=== PATIENT | female | born 1990 ===

== ENCOUNTER 2021-08-11 17:00 | Inpatient (IN) | payer BC ==
[2021-08-11] MEDS ORDERED: Sodium Chloride 0.9% 10 ML Syringe FLUSH PRN (17:28)
[2021-08-11] MEDS ORDERED: Misoprostol 200 MCG Tab PO PRN (17:28)
[2021-08-11] MEDS ORDERED: Butorphanol 1 MG/ML SDV IVPUSH PRN (17:28)
[2021-08-11] MEDS ORDERED: Sodium Chloride 0.9% 10 ML SDV IV PRN (17:28)
[2021-08-11] MEDS ORDERED: Ondansetron 4 MG/2 ML SDV IVPUSH PRN (17:28)
[2021-08-11] MEDS ORDERED: Methylergonovine 0.2 MG/1 ML Amp IM PRN (17:28)
[2021-08-11] MEDS ORDERED: Tranexamic Acid 1,000 MG in Sodium Chloride 0.9% 100 ML IV PRN (17:28)
[2021-08-11] MEDS ORDERED: Sodium Chloride 0.9% 2.5 ML Syringe FLUSH PRN (17:28)
[2021-08-11] MEDS ORDERED: Lidocaine 1% 50 ML MDV INJECT PRN (17:28)
[2021-08-11] MEDS ORDERED: Carboprost Tromethamine 250 MCG/1 ML Amp IM PRN (17:28)
[2021-08-11] MEDS ORDERED: Nalbuphine 10 MG/1 ML Vial IVPUSH PRN (17:28)
[2021-08-11] MEDS ORDERED: Water For Irrigation,Sterile 1,000 ML Container IRR PRN (17:28)
[2021-08-11] MEDS ORDERED: Oxytocin/0.9 % Sodium Chloride 30 UNIT/500 ML BAG IV SCH ×2 (17:30)
[2021-08-11] MEDS ORDERED: Misoprostol 25 MCG (1/4 of 100 MCG) Tab VAG PRN (17:30)
[2021-08-11] MEDS ORDERED: Terbutaline 1 MG/ML SDV SUBCUT PRN (17:30)
[2021-08-11] MEDS: Lactated Ringers 1,000 ML IV SCH (18:50)
[2021-08-11 18:52] LABS: BLOOD UREA NITROGEN,BUN 8 mg/dL (7.0-18.0); CARBON DIOXIDE,CO2 20.8 mmol/L (21.0-32.0); CHLORIDE,CL 101 mmol/L (98-107); GLUCOSE RANDOM 73 mg/dL (74-106); SODIUM,NA 135 mmol/L (136-145)
[2021-08-11] MEDS ORDERED: Misoprostol 50 MCG (1/2 of 100 MCG) Tab VAG PRN (20:30)
[2021-08-11] MEDS: Misoprostol 25 MCG (1/4 of 100 MCG) Tab VAG PRN (20:56)
[2021-08-12] MEDS: Misoprostol 25 MCG (1/4 of 100 MCG) Tab VAG PRN ×3 (00:53→10:05)
[2021-08-12] MEDS: Lactated Ringers 1,000 ML IV SCH ×3 (12:57→16:18)
[2021-08-12] MEDS ORDERED: Ropivacaine HCl/PF 200 ML ONE (13:23)
[2021-08-12] MEDS ORDERED: EPINEPHrine 1 MG/1 ML Amp ONE (16:13)
[2021-08-12] MEDS ORDERED: Lidocaine 2% 5 ML SDV ONE (16:13)
[2021-08-12] MEDS ORDERED: Sodium Chloride 0.9% 10 ML SDV IV PRN (16:15)
[2021-08-12] MEDS ORDERED: Citric Acid/Sodium Citrate Solution 30 ML Cup PO ONE (16:15)
[2021-08-12] MEDS ORDERED: Oxytocin/0.9 % Sodium Chloride 30 UNIT/500 ML BAG IV SCH (16:15)
[2021-08-12] MEDS ORDERED: Sodium Chloride 0.9% 2.5 ML Syringe FLUSH PRN (16:15)
[2021-08-12] MEDS ORDERED: Lactated Ringers 1,000 ML IV SCH ×2 (16:15→17:15)
[2021-08-12] MEDS ORDERED: Sodium Chloride 0.9% 10 ML Syringe FLUSH PRN (16:15)
[2021-08-12] MEDS ORDERED: ceFAZolin 2 GM in Premix Bag 1 BAG IV ONE (16:15)
[2021-08-12] MEDS ORDERED: Bupivacaine 0.5% 10 ML SDV ONE (16:17)
[2021-08-12] MEDS ORDERED: fentaNYL 100 MCG/2 ML SDV ONE (16:20)
[2021-08-12] MEDS ORDERED: Ketorolac 30 MG/ML SDV ONE (16:20)
[2021-08-12] MEDS ORDERED: Ondansetron 4 MG/2 ML SDV ONE (16:20)
[2021-08-12] MEDS ORDERED: Oxytocin 10 Units/1 ML SDV ONE (16:20)
[2021-08-12] MEDS ORDERED: ceFAZolin 1 GM Vial ONE (17:06)
[2021-08-12] MEDS ORDERED: Morphine PF 10 MG/10 ML SDV ONE (17:06)
[2021-08-12] MEDS ORDERED: Oxytocin 10 Units/1 ML SDV IM PRN (17:15)
[2021-08-12] MEDS ORDERED: Misoprostol 200 MCG Tab RECTAL PRN (17:15)
[2021-08-12] MEDS ORDERED: diphenhydrAMINE 50 MG/ML SDV IVPUSH PRN (17:15)
[2021-08-12] MEDS ORDERED: Tranexamic Acid 1,000 MG in Sodium Chloride 0.9% 100 ML IV PRN (17:15)
[2021-08-12] MEDS ORDERED: Methylergonovine 0.2 MG/1 ML Amp IM PRN (17:15)
[2021-08-12] MEDS ORDERED: Lanolin 100% Cream 7 GM Tube TOP PRN (17:15)
[2021-08-12] MEDS ORDERED: Ondansetron 4 MG/2 ML SDV IVPUSH PRN (17:15)
[2021-08-12] MEDS ORDERED: Acetaminophen/oxyCODONE 325-5 MG Tab PO PRN (17:15)
[2021-08-12] MEDS ORDERED: Oxytocin/Lactated Ringers 30 UNIT/500 ML BAG IV SCH (17:15)
[2021-08-12] MEDS ORDERED: Bisacodyl 10 MG Supp RECTAL PRN (17:15)
--- NOTE | 2021-08-12 17:31 | PCM.OPNOTE ---
<Kathleen Serna - Last Filed: 08/12/21 17:25> - General Post-Op/Procedure Note Date of Surgery/Procedure: 08/12/21 Operative Procedure(s): Primary section Findings: Viable girl. Apgars 8 and 9. Weight 2980 grams. Pre Op Diagnosis: 31 year old at 37 weeks 3 days. Gestational diabetes. Maternal obesity. Non-reassuring heart tones Post-Op Diagnosis: Same Anesthesia Technique: Epidural Primary Surgeon: Stacey Mckay Machine Container Washer: Kathleen Serna Fluid Replacement, Intraop: 1,000 Output, Urine Amount: 575 EBL in mLs: 600 Complications: None known Condition: Good Free Text/Narrative:: Intake & Output 08/12/21 08/12/21 08/12/21 06:59 14:59 22:59 Intake Total 975 975 Balance 975 975 <Stacey Mckay - Last Filed: 08/13/21 08:18> - General Post-Op/Procedure Note Free Text/Narrative:: Intake & Output 08/12/21 08/13/21 08/13/21 22:59 06:59 14:59 Intake Total 1975 Output Total 2149 2049 Balance -175 -2049 Agree with above
[2021-08-12] MEDS: Docusate Sodium 100 MG Cap PO SCH (21:05)
--- NOTE | 2021-08-12 22:56 | OR ---
SURGEON: STACEY MCKAY MD DATE OF PROCEDURE: 08/12/2021 PROCEDURE: Primary lower transverse section. PREOPERATIVE DIAGNOSES: 1. Term intrauterine at 37 weeks and 3 days. 2. Gestational hypertension. 3. Non-reassuring heart tones. POSTOPERATIVE DIAGNOSES: 1. Term intrauterine at 37 weeks and 3 days. 2. Gestational hypertension. 3. Non-reassuring heart tones. PROCEDURE: Primary lower transverse section. PRIMARY SURGEON: Stacey Mckay MD GREEN BUILDING ENGINEER: CHIKIS [id number] ANESTHESIA: Epidural. COMPLICATIONS: None known. EBL: 600 mL. IV FLUIDS: 1000 mL of crystalloid. URINE OUTPUT: 535 mL of clear urine at the end of the procedure. INDICATION: The patient is a 31-year-old 1, para 0, at 37 weeks and 3 days, who was admitted to Labor and Delivery on the evening of 08/11/2021, for induction of labor due to gestational hypertension. She received 4 doses of vaginal Cytotec overnight with spontaneous rupture of membranes occurring in the morning of 08/12/2021. Shortly thereafter, she received an epidural for pain management. Following the epidural, there was a prolonged deceleration, which recovered with interventions of oxygen per face mask and IV fluids along with position changes. However, as labor progressed, tachysystole was noted along with recurrent late decelerations which did not resolve with interventions of oxygen, IV fluids and amnioinfusion. A decision was made to proceed with primary lower transverse section due to nonreassuring heart tones. FINDINGS: Normal-appearing female infant, cephalic presentation, clear amniotic fluid. score of 8 and 9. Weight 6 pounds 9 ounces. Uterus appears normal except for 3 approximately 1 cm subserosal fibroids located over the anterior wall of the uterus. Normal-appearing fallopian tubes and ovaries. DESCRIPTION OF PROCEDURE: The patient was taken to the operating room where epidural anesthesia was found to be adequate. At that time, heart tones were noted to be in the 80s persistently, so Betadine was used to splash the abdomen and the procedure was started urgently at that time. A skin incision was made with scalpel and carried to the underlying layer of fascia which was incised in the midline. Fascial incision was then extended laterally with Tavarez scissors bilaterally. The superior aspect of the fascial incision was then grasped with Eusebio clamps, elevated, and dissected off the rectus muscles with Mayoalice. In a likewise manner, the inferior aspect of the fascial incision was grasped with Eusebio's, elevated, and dissected off with Mayos. The peritoneum was then entered digitally and extended with good visualization of the bladder. The Kehinde O- ring was then inserted to the abdomen to assist with retraction. The uterine incision was then created in a transverse fashion in the lower uterine segment with scalpel and extended digitally. Clear fluid noted. Infant's head delivered atraumatically. Nose and mouth suctioned with a bulb. Cord clamped and cut, handed off to waiting nursing staff. The placenta was then expressed after obtaining arterial, venous, and cord blood gases. The uterus was then exteriorized and the abdomen cleared of all clots and debris. The uterine incision was then repaired in a running locked fashion with 0 Monocryl. A second suture of the same was then used to imbricate the incision. Excellent hemostasis was noted. The uterus was then returned to the abdomen. Gutters cleared of all clots and debris. The Kehinde O-ring was then removed. The peritoneum was then closed in a running fashion with 0 Vicryl. The inferior rectus muscles were reapproximated with a [id number] suture with 0 Vicryl. The fascia was then closed with 0 Vicryl in a running fashion. The incision was irrigated. Hemostasis assured. Subcutaneous tissue was closed with 2-0 plain gut and skin was closed with 3-0 Vicryl on a Kenneth needle along with Steri- Strips and abdominal bandage. Sponge, lap, needle count were correct x2. Prophylactic antibiotics were given prior to the procedure. The patient tolerated the procedure well and was taken to room for recovery in stable condition. MANFRED / JAX /[id number] CALLI
[2021-08-12] MEDS: Ketorolac 30 MG/ML SDV IVPUSH SCH ×2 (23:15→23:20)
[2021-08-13] MEDS: Ketorolac 30 MG/ML SDV IVPUSH SCH ×3 (04:54→17:03)
--- NOTE | 2021-08-13 08:19 | PCM.PNPP ---
- General Info Date of Service: 08/13/21 Admission Dx/Problem (Free Text): Gestational hypertension Subjective Update: Sitting in chair, nursing during rounds. Reports pain controlled. Tolerating regular diet. Morris catheter out this AM, has not voided yet. Denies headaches, visual changes or RUQ pain. - General Info Date of Service: 08/13/21 - Patient Data Vital Signs - Most Recent: Last Vital Signs Temp 96.7 F L 08/13/21 07:43 Pulse 77 08/13/21 07:43 Resp 18 08/13/21 07:43 BP 107/78 08/13/21 07:43 Pulse Ox 100 08/13/21 07:43 Weight - Most Recent: 237 lb I&O - Last 24 Hours: Intake & Output 08/12/21 08/13/21 08/13/21 22:59 06:59 14:59 Intake Total 1975 Output Total 2149 2049 Balance -175 -2049 Lab Results - Last 24 Hours: Laboratory Results - last 24 hr 08/12/21 08/12/21 08/13/21 Range/Units 16:36 16:36 06:01 Hgb 12.9 (12.0-16.0) g/dL Hct 37.4 (36.0-46.0) % Cord ABG pH 7.139 L (7.18-7.38) Cord ABG Base Excess -9 (-10--2) Cord VBG pH 7.124 L (7.25-7.45) Cord VBG Base Excess -10 (-10--2) Med Orders - Current: Current Medications Bisacodyl (Bisacodyl 10 Mg Supp) 10 mg RECTAL ONETIME PRN PRN Reason: Constipation Butorphanol Tartrate (Butorphanol 1 Mg/Ml Sdv) 1 mg IVPUSH Q1H PRN PRN Reason: Pain (severe 7-10) Carboprost Tromethamine (Carboprost Tromethamine 250 Mcg/1 Ml Amp) 250 mcg IM ASDIRECTED PRN PRN Reason: Post Hemorrhage Diphenhydramine HCl (Diphenhydramine 50 Mg/Ml Sdv) 25 mg IVPUSH Q6H PRN PRN Reason: Itching or Nausea Docusate Sodium (Docusate Sodium 100 Mg Cap) 100 mg PO BID ROSETTE Last Admin: 08/12/21 21:05 Dose: Not Given Documented by: Emollient Ointment (Lanolin 100% Cream 7 Gm Tube) 0 gm TOP ASDIRECTED PRN PRN Reason: Sore Nipples Oxytocin/Sodium Chloride (Oxytocin 30 Unit/500 Ml-Ns) 30 unit in 500 mls @ 500 mls/hr IV TITRATE [facility] Tranexamic Acid 1,000 mg/ (Sodium Chloride) 110 mls @ 660 mls/hr IV ONETIME PRN PRN Reason: Bleeding Lactated Ringer's (Ringers, Lactated) 1,000 mls @ 150 mls/hr IV ASDIRECTED ROSETTE Last Admin: 08/12/21 16:18 Dose: 150 mls/hr Documented by: Oxytocin/Sodium Chloride (Oxytocin 30 Unit/500 Ml-Ns) 30 unit in 500 mls @ 2 mls/hr IV TITRATE [facility]; Protocol Lactated Ringer's (Ringers, Lactated) 1,000 mls @ 500 mls/hr IV BOLUS ROSETTE Oxytocin/Sodium Chloride (Oxytocin 30 Unit/500 Ml-Ns) 30 unit in 500 mls @ 250 mls/hr IV TITRATE [facility] Lactated Ringer's (Ringers, Lactated) 1,000 mls @ 125 mls/hr IV ASDIRECTED [facility] Oxytocin/Lactated Ringer's (Pitocin In Lr 30 Units/500 Ml) 30 unit in 500 mls @ 250 mls/hr IV TITRATE [facility]; Protocol Tranexamic Acid 1,000 mg/ (Sodium Chloride) 110 mls @ 660 mls/hr IV ONETIME PRN PRN Reason: Bleeding Ibuprofen (Ibuprofen 800 Mg Tab) 800 mg PO Q8H PRN PRN Reason: Cramping Ketorolac Tromethamine (Ketorolac 30 Mg/Ml Sdv) 30 mg IVPUSH Q6H [facility] Stop: 08/13/21 17:16 Last Admin: 08/13/21 04:54 Dose: 30 mg Documented by: Lidocaine HCl (Lidocaine 1% 50 Ml Mdv) 50 ml INJECT ONETIME PRN PRN Reason: Laceration repair Methylergonovine Maleate (Methylergonovine 0.2 Mg/1 Ml Amp) 0.2 mg IM ASDIRECTED PRN PRN Reason: Post Hemorrhage Methylergonovine Maleate (Methylergonovine 0.2 Mg/1 Ml Amp) 0.2 mg IM ONETIME PRN PRN Reason: Excessive Vaginal Bleeding Misoprostol (Misoprostol 200 Mcg Tab) 200 mcg PO ONETIME PRN PRN Reason: Post Hemorrhage Misoprostol (Misoprostol 25 Mcg (1/4 Of 100 Mcg) Tab) 25 mcg VAG ONETIME PRN PRN Reason: Cervical Ripening Misoprostol (Misoprostol 25 Mcg (1/4 Of 100 Mcg) Tab) 25 mcg VAG Q4H PRN PRN Reason: Cervical Ripening Last Admin: 08/12/21 10:05 Dose: 25 mcg Documented by: Misoprostol (Misoprostol 50 Mcg (1/2 Of 100 Mcg) Tab) 25 mcg VAG Q4H PRN PRN Reason: Other Misoprostol (Misoprostol 200 Mcg Tab) 1,000 mcg RECTAL ONETIME PRN PRN Reason: excessive bleeding Nalbuphine HCl (Nalbuphine 10 Mg/1 Ml Vial) 10 mg IVPUSH Q1H PRN PRN Reason: Pain (severe 7-10) Ondansetron HCl (Ondansetron 4 Mg/2 Ml Sdv) 4 mg IVPUSH Q4H PRN PRN Reason: Nausea/Vomiting Ondansetron HCl (Ondansetron 4 Mg/2 Ml Sdv) 4 mg IVPUSH Q4H PRN PRN Reason: Nausea/Vomiting Oxycodone/Acetaminophen (Acetaminophen/Oxycodone 325-5 Mg Tab) 1 tab PO Q4H PRN PRN Reason: Pain (severe 7-10) Oxycodone/Acetaminophen (Acetaminophen/Oxycodone 325-5 Mg Tab) 2 tab PO Q4H PRN PRN Reason: Pain (severe 7-10) Oxytocin (Oxytocin 10 Units/1 Ml Sdv) 10 unit IM ASDIRECTED PRN PRN Reason: Excessive Vaginal Bleeding Sodium Chloride (Sodium Chloride 0.9% 10 Ml Syringe) 10 ml FLUSH ASDIRECTED PRN PRN Reason: Keep Vein Open Sodium Chloride (Sodium Chloride 0.9% 2.5 Ml Syringe) 2.5 ml FLUSH ASDIRECTED PRN PRN Reason: Keep Vein Open Sodium Chloride (Sodium Chloride 0.9% 10 Ml Sdv) 10 ml IV ASDIRECTED PRN PRN Reason: IV Use Sodium Chloride (Sodium Chloride 0.9% 10 Ml Syringe) 10 ml FLUSH ASDIRECTED PRN PRN Reason: Keep Vein Open Sodium Chloride (Sodium Chloride 0.9% 2.5 Ml Syringe) 2.5 ml FLUSH ASDIRECTED PRN PRN Reason: Keep Vein Open Sodium Chloride (Sodium Chloride 0.9% 10 Ml Sdv) 10 ml IV ASDIRECTED PRN PRN Reason: IV Use Sterile Water (Water For Irrigation,Sterile 1,000 Ml Container) 1,000 ml IRR ASDIRECTED PRN PRN Reason: delivery Terbutaline Sulfate (Terbutaline 1 Mg/Ml Sdv) 0.25 mg SUBCUT ASDIRECTED PRN PRN Reason: Tacysystole Discontinued Medications Bupivacaine HCl (Bupivacaine 0.5% 10 Ml Sdv) Confirm Administered Dose 10 ml .ROUTE .STK-MED ONE Stop: 08/12/21 16:18 Cefazolin Sodium (Cefazolin 1 Gm Vial) Confirm Administered Dose 2 gm .ROUTE .STK-MED ONE Stop: 08/12/21 17:07 Citric Acid/Sodium Citrate (Citric Acid/Sodium Citrate Solution 30 Ml Cup) 30 ml PO ONETIME ONE Stop: 08/12/21 16:16 Last Admin: 08/13/21 01:00 Dose: Not Given Documented by: Epinephrine HCl (Epinephrine 1 Mg/1 Ml Amp) Confirm Administered Dose 1 mg .ROUTE .STK-MED ONE Stop: 08/12/21 16:14 Fentanyl (Fentanyl 100 Mcg/2 Ml Sdv) Confirm Administered Dose 100 mcg .ROUTE .STK-MED ONE Stop: 08/12/21 16:21 Ropivacaine (Naropin 0.2%) Confirm Administered Dose 200 mls @ as directed .ROUTE .STK-MED ONE Stop: 08/12/21 13:24 Cefazolin Sodium/Dextrose 2 gm (/ Premix) 50 mls @ 100 mls/hr IV ONETIME ONE Stop: 08/12/21 16:44 Last Admin: 08/12/21 16:15 Dose: Not Given Documented by: Ketorolac Tromethamine (Ketorolac 30 Mg/Ml Sdv) Confirm Administered Dose 30 mg .ROUTE .STK-MED ONE Stop: 08/12/21 16:21 Lidocaine (Lidocaine 2% 5 Ml Sdv) Confirm Administered Dose 20 ml .ROUTE .STK- MED ONE Stop: 08/12/21 16:14 Miscellaneous Medication (Phenylephrine Hcl In 0.9% Nacl 1 Mg/10 Ml Syringe) Confirm Administered Dose 1 mg .ROUTE .STK-MED ONE Stop: 08/12/21 16:21 Morphine Sulfate (Morphine Pf 10 Mg/10 Ml Sdv) Confirm Administered Dose 10 mg .ROUTE .STK-MED ONE Stop: 08/12/21 17:07 Ondansetron HCl (Ondansetron 4 Mg/2 Ml Sdv) Confirm Administered Dose 4 mg .ROUTE .STK-MED ONE Stop: 08/12/21 16:21 Oxytocin (Oxytocin 10 Units/1 Ml Sdv) Confirm Administered Dose 30 unit .ROUTE .STK-MED ONE Stop: 08/12/21 16:21 - Infant Interaction Disposition, : [place] in Room with Family Infant Interaction: Holding Infant Feeding: Breastfed ; Nursed Well Support Person: - Recovery Exam Fundal Tone: Firm Fundal Level: 2 Fingerbreadths Below Umbilicus Fundal Placement: Midline Lochia Amount: Small Lochia Color: Rubra/Red - Exam General: Alert Lungs: Normal Respiratory Effort Cardiovascular: Regular Rate GI/Abdominal Exam: Soft, Non-Tender Extremities: Normal Inspection, Non-Tender, Pedal Edema (1+) Skin: Warm, Dry, Intact Wound/Incisions: Dressing Dry and Intact Neurological: No New Focal Deficit Psy/Mental Status: Normal Mood - Problem List Review Problem List Initiated/Reviewed/Updated: Yes - My Orders Last 24 Hours: My Active Orders 08/12/21 Dinner Regular Diet [DIET] 08/12/21 16:15 Lactated Ringers [Ringers, Lactated] 1,000 ml IV BOLUS Oxytocin/0.9 % Sodium Chloride [Oxytocin 30 Unit/500 ML-NS] 30 unit in 500 ml IV TITRATE Sodium Chloride 0.9% [Normal Saline] 10 ml IV ASDIRECTED PRN Sodium Chloride 0.9% [Saline Flush] 10 ml FLUSH ASDIRECTED PRN Sodium Chloride 0.9% [Saline Flush] 2.5 ml FLUSH ASDIRECTED PRN 08/12/21 16:16 Up ad Jossy [RC] ASDIRECTED Peripheral IV Insertion Adult [OM.PC] Routine Schedule Procedure [COMM] Per Unit Routine 08/12/21 17:15 Patient Status [ADT] Routine Ambulate [RC] PER UNIT ROUTINE Communication Order [RC] PER UNIT ROUTINE Communication Order [RC] PER UNIT ROUTINE Communication Order [RC] Per Unit Routine May Shower [RC] ASDIRECTED RT Incentive Spirometry [RC] Q2HWA Vital Signs [RC] PER UNIT ROUTINE Acetaminophen/oxyCODONE [Percocet 325-5 MG] 1 tab PO Q4H PRN Acetaminophen/oxyCODONE [Percocet 325-5 MG] 2 tab PO Q4H PRN Ketorolac [Toradol] 30 mg IVPUSH Q6H Lactated Ringers [Ringers, Lactated] 1,000 ml IV ASDIRECTED Lanolin [Lansinoh HPA] See Dose Instructions TOP ASDIRECTED PRN Methylergonovine [Methergine] 0.2 mg IM ONETIME PRN Ondansetron [Zofran] 4 mg IVPUSH Q4H PRN Oxytocin [Pitocin] 10 unit IM ASDIRECTED PRN Oxytocin/Lactated Ringers [Pitocin in LR 30 Units/500 ML] 30 unit in 500 ml IV TITRATE Tranexamic Acid [Cyklokapron] 1,000 mg Sodium Chloride 0.9% [Normal Saline] 100 ml IV ONETIME bisacodyL [Dulcolax] 10 mg RECTAL ONETIME PRN diphenhydrAMINE [Benadryl] 25 mg IVPUSH Q6H PRN miSOPROStoL [Cytotec] 1,000 mcg RECTAL ONETIME PRN Assess Lochia [WOMSER] Per Unit Routine Assess Uterine Involution [WOMSER] Per Unit Routine Breast Pump [WOMSER] Per Unit Routine Peripheral IV Discontinue [OM.PC] Routine Sequential Compression Device [OM.PC] Per Unit Routine 08/12/21 17:16 Antiembolic Devices [RC] PER UNIT ROUTINE 08/12/21 18:00 Notify Provider Intake and Out [RC] ASDIRECTED Notify Provider Vital Signs [RC] ASDIRECTED 08/12/21 21:00 Docusate Sodium [Colace] 100 mg PO BID 08/13/21 23:15 Ibuprofen [Motrin] 800 mg PO Q8H PRN - Assessment Assessment:: 31 year old POD1 s/p primary lower transverse section with gestational hypertension - Plan Plan:: Routine postoperative/ cares * Rh positive, rubella immune, GBS negative * PO pain medications ordered * Regular diet as tolerated * Encourage ambulation and fluid intake today * , nursing assistance PRN Gestational hypertension * BP normotensive to mild range overnight * Labs within normal limits * Asymptomatic * Continue to monitor BP and symptoms closely while inpatient Dispo: stable. Anticipate discharge POD2-3 pending maternal/ status. Continue cares today.
[2021-08-13] MEDS: Docusate Sodium 100 MG Cap PO SCH ×2 (11:15→23:26)
[2021-08-13] MEDS: Ibuprofen 800 MG Tab PO PRN (23:26)
[2021-08-14] MEDS: Acetaminophen/oxyCODONE 325-5 MG Tab PO PRN ×5 (01:51→21:11)
[2021-08-14] MEDS: Ibuprofen 800 MG Tab PO PRN ×2 (09:37→21:12)
[2021-08-14] MEDS: Docusate Sodium 100 MG Cap PO SCH ×2 (09:37→21:12)
--- NOTE | 2021-08-14 10:12 | PCM.PNPP ---
- General Info Date of Service: 08/14/21 Functional Status: Reports: Pain Controlled, Tolerating Diet, Ambulating, Urinating - Review of Systems General: Reports: Fatigue. Denies: Fever, Weakness Pulmonary: Denies: Shortness of Breath Cardiovascular: Denies: Chest Pain, Palpitations, Lightheadedness Gastrointestinal: Denies: Abdominal Pain, Nausea, Vomiting Genitourinary: Denies: Flank Pain Musculoskeletal: Reports: No Symptoms Skin: Reports: No Symptoms Neurological: Reports: No Symptoms Psychiatric: Reports: No Symptoms - General Info Date of Service: 08/14/21 - Patient Data Vital Signs - Most Recent: Last Vital Signs Temp 36.4 C 08/14/21 05:30 Pulse 73 08/14/21 05:30 Resp 16 08/14/21 05:30 BP 129/76 08/14/21 05:30 Pulse Ox 96 08/14/21 05:30 Weight - Most Recent: 107.501 kg Lab Results - Last 24 Hours: Laboratory Results - last 24 hr 08/11/21 Range/Units 17:45 RPR Non-Reac (Non-Reac) Med Orders - Current: Current Medications Bisacodyl (Bisacodyl 10 Mg Supp) 10 mg RECTAL ONETIME PRN PRN Reason: Constipation Butorphanol Tartrate (Butorphanol 1 Mg/Ml Sdv) 1 mg IVPUSH Q1H PRN PRN Reason: Pain (severe 7-10) Carboprost Tromethamine (Carboprost Tromethamine 250 Mcg/1 Ml Amp) 250 mcg IM ASDIRECTED PRN PRN Reason: Post Hemorrhage Diphenhydramine HCl (Diphenhydramine 50 Mg/Ml Sdv) 25 mg IVPUSH Q6H PRN PRN Reason: Itching or Nausea Docusate Sodium (Docusate Sodium 100 Mg Cap) 100 mg PO BID [facility] Last Admin: 08/14/21 09:37 Dose: 100 mg Documented by: Emollient Ointment (Lanolin 100% Cream 7 Gm Tube) 0 gm TOP ASDIRECTED PRN PRN Reason: Sore Nipples Last Admin: 08/14/21 01:52 Dose: 7 gm Documented by: Oxytocin/Sodium Chloride (Oxytocin 30 Unit/500 Ml-Ns) 30 unit in 500 mls @ 500 mls/hr IV TITRATE [facility] Tranexamic Acid 1,000 mg/ (Sodium Chloride) 110 mls @ 660 mls/hr IV ONETIME PRN PRN Reason: Bleeding Lactated Ringer's (Ringers, Lactated) 1,000 mls @ 150 mls/hr IV ASDIRECTED [facility] Last Admin: 08/12/21 16:18 Dose: 150 mls/hr Documented by: Oxytocin/Sodium Chloride (Oxytocin 30 Unit/500 Ml-Ns) 30 unit in 500 mls @ 2 mls/hr IV TITRATE [facility]; Protocol Lactated Ringer's (Ringers, Lactated) 1,000 mls @ 500 mls/hr IV BOLUS [facility] Oxytocin/Sodium Chloride (Oxytocin 30 Unit/500 Ml-Ns) 30 unit in 500 mls @ 250 mls/hr IV TITRATE [facility] Lactated Ringer's (Ringers, Lactated) 1,000 mls @ 125 mls/hr IV ASDIRECTED [facility] Oxytocin/Lactated Ringer's (Pitocin In Lr 30 Units/500 Ml) 30 unit in 500 mls @ 250 mls/hr IV TITRATE [facility]; Protocol Tranexamic Acid 1,000 mg/ (Sodium Chloride) 110 mls @ 660 mls/hr IV ONETIME PRN PRN Reason: Bleeding Ibuprofen (Ibuprofen 800 Mg Tab) 800 mg PO Q8H PRN PRN Reason: Cramping Last Admin: 08/14/21 09:37 Dose: 800 mg Documented by: Lidocaine HCl (Lidocaine 1% 50 Ml Mdv) 50 ml INJECT ONETIME PRN PRN Reason: Laceration repair Methylergonovine Maleate (Methylergonovine 0.2 Mg/1 Ml Amp) 0.2 mg IM ASDIRECTED PRN PRN Reason: Post Hemorrhage Methylergonovine Maleate (Methylergonovine 0.2 Mg/1 Ml Amp) 0.2 mg IM ONETIME PRN PRN Reason: Excessive Vaginal Bleeding Misoprostol (Misoprostol 200 Mcg Tab) 200 mcg PO ONETIME PRN PRN Reason: Post Hemorrhage Misoprostol (Misoprostol 25 Mcg (1/4 Of 100 Mcg) Tab) 25 mcg VAG ONETIME PRN PRN Reason: Cervical Ripening Misoprostol (Misoprostol 25 Mcg (1/4 Of 100 Mcg) Tab) 25 mcg VAG Q4H PRN PRN Reason: Cervical Ripening Last Admin: 08/12/21 10:05 Dose: 25 mcg Documented by: Misoprostol (Misoprostol 50 Mcg (1/2 Of 100 Mcg) Tab) 25 mcg VAG Q4H PRN PRN Reason: Other Misoprostol (Misoprostol 200 Mcg Tab) 1,000 mcg RECTAL ONETIME PRN PRN Reason: excessive bleeding Nalbuphine HCl (Nalbuphine 10 Mg/1 Ml Vial) 10 mg IVPUSH Q1H PRN PRN Reason: Pain (severe 7-10) Ondansetron HCl (Ondansetron 4 Mg/2 Ml Sdv) 4 mg IVPUSH Q4H PRN PRN Reason: Nausea/Vomiting Ondansetron HCl (Ondansetron 4 Mg/2 Ml Sdv) 4 mg IVPUSH Q4H PRN PRN Reason: Nausea/Vomiting Oxycodone/Acetaminophen (Acetaminophen/Oxycodone 325-5 Mg Tab) 1 tab PO Q4H PRN PRN Reason: Pain (severe 7-10) Last Admin: 08/14/21 05:52 Dose: 1 tab Documented by: Oxycodone/Acetaminophen (Acetaminophen/Oxycodone 325-5 Mg Tab) 2 tab PO Q4H PRN PRN Reason: Pain (severe 7-10) Oxytocin (Oxytocin 10 Units/1 Ml Sdv) 10 unit IM ASDIRECTED PRN PRN Reason: Excessive Vaginal Bleeding Sodium Chloride (Sodium Chloride 0.9% 10 Ml Syringe) 10 ml FLUSH ASDIRECTED PRN PRN Reason: Keep Vein Open Sodium Chloride (Sodium Chloride 0.9% 2.5 Ml Syringe) 2.5 ml FLUSH ASDIRECTED PRN PRN Reason: Keep Vein Open Sodium Chloride (Sodium Chloride 0.9% 10 Ml Sdv) 10 ml IV ASDIRECTED PRN PRN Reason: IV Use Sodium Chloride (Sodium Chloride 0.9% 10 Ml Syringe) 10 ml FLUSH ASDIRECTED PRN PRN Reason: Keep Vein Open Sodium Chloride (Sodium Chloride 0.9% 2.5 Ml Syringe) 2.5 ml FLUSH ASDIRECTED PRN PRN Reason: Keep Vein Open Sodium Chloride (Sodium Chloride 0.9% 10 Ml Sdv) 10 ml IV ASDIRECTED PRN PRN Reason: IV Use Sterile Water (Water For Irrigation,Sterile 1,000 Ml Container) 1,000 ml IRR ASDIRECTED PRN PRN Reason: delivery Terbutaline Sulfate (Terbutaline 1 Mg/Ml Sdv) 0.25 mg SUBCUT ASDIRECTED PRN PRN Reason: Tacysystole Discontinued Medications Bupivacaine HCl (Bupivacaine 0.5% 10 Ml Sdv) Confirm Administered Dose 10 ml .ROUTE .STK-MED ONE Stop: 08/12/21 16:18 Cefazolin Sodium (Cefazolin 1 Gm Vial) Confirm Administered Dose 2 gm .ROUTE .STK-MED ONE Stop: 08/12/21 17:07 Citric Acid/Sodium Citrate (Citric Acid/Sodium Citrate Solution 30 Ml Cup) 30 ml PO ONETIME ONE Stop: 08/12/21 16:16 Last Admin: 08/13/21 01:00 Dose: Not Given Documented by: Epinephrine HCl (Epinephrine 1 Mg/1 Ml Amp) Confirm Administered Dose 1 mg .ROUTE .STK-MED ONE Stop: 08/12/21 16:14 Fentanyl (Fentanyl 100 Mcg/2 Ml Sdv) Confirm Administered Dose 100 mcg .ROUTE .STK-MED ONE Stop: 08/12/21 16:21 Ropivacaine (Naropin 0.2%) Confirm Administered Dose 200 mls @ as directed .ROUTE .STK-MED ONE Stop: 08/12/21 13:24 Cefazolin Sodium/Dextrose 2 gm (/ Premix) 50 mls @ 100 mls/hr IV ONETIME ONE Stop: 08/12/21 16:44 Last Admin: 08/12/21 16:15 Dose: Not Given Documented by: Ketorolac Tromethamine (Ketorolac 30 Mg/Ml Sdv) Confirm Administered Dose 30 mg .ROUTE .STK-MED ONE Stop: 08/12/21 16:21 Ketorolac Tromethamine (Ketorolac 30 Mg/Ml Sdv) 30 mg IVPUSH Q6H [facility] Stop: 08/13/21 17:16 Last Admin: 08/13/21 17:03 Dose: 30 mg Documented by: Lidocaine (Lidocaine 2% 5 Ml Sdv) Confirm Administered Dose 20 ml .ROUTE .STK- MED ONE Stop: 08/12/21 16:14 Miscellaneous Medication (Phenylephrine Hcl In 0.9% Nacl 1 Mg/10 Ml Syringe) Confirm Administered Dose 1 mg .ROUTE .STK-MED ONE Stop: 08/12/21 16:21 Morphine Sulfate (Morphine Pf 10 Mg/10 Ml Sdv) Confirm Administered Dose 10 mg .ROUTE .STK-MED ONE Stop: 08/12/21 17:07 Ondansetron HCl (Ondansetron 4 Mg/2 Ml Sdv) Confirm Administered Dose 4 mg .ROUTE .STK-MED ONE Stop: 08/12/21 16:21 Oxytocin (Oxytocin 10 Units/1 Ml Sdv) Confirm Administered Dose 30 unit .ROUTE .STK-MED ONE Stop: 08/12/21 16:21 - Interaction Disposition, : [place] in Room with Family Infant Interaction: Holding Infant Feeding: Breastfed ; Nursed Well Support Person: - Recovery Exam Fundal Tone: Firm Fundal Level: 2 Fingerbreadths Below Umbilicus Fundal Placement: Midline Lochia Amount: Scant Lochia Color: Rubra/Red Bladder Status: Voiding - Exam General: Alert, Oriented Lungs: Normal Respiratory Effort Cardiovascular: Regular Rate, Regular Rhythm GI/Abdominal Exam: Normal Bowel Sounds, Soft Extremities: Pedal Edema (trace pedal edema) Skin: Warm, Dry, Intact Wound/Incisions: Healing Well, Dressing Dry and Intact Neurological: No New Focal Deficit Psy/Mental Status: Alert, Normal Affect, Normal Mood - Problem List & Annotations (1) Status post primary low transverse section SNOMED Code(s): 343876082, 77121146, 207855307, 555096255, [id number] Code(s): Z98.891 - HISTORY OF UTERINE SCAR FROM PREVIOUS SURGERY Status: Acute Current Visit: Yes - Problem List Review Problem List Initiated/Reviewed/Updated: Yes - Assessment Assessment:: 31 year old POD2 s/p primary lower transverse section with gestational hypertension - Plan Plan:: Routine postoperative/ cares * Rh positive, rubella immune, GBS negative * PO pain medications ordered * Regular diet as tolerated * Encourage ambulation and fluid intake today * , nursing assistance PRN Gestational hypertension * BP normotensive * Dispo: Doing well overall with blood pressures remaining in normal range. Allow discharge to home today. Discharge instructions reviewed. Follow up at [facility] 2 and 6 weeks. Blood pressure warnings reviewed.
[2021-08-15] MEDS: Acetaminophen/oxyCODONE 325-5 MG Tab PO PRN (04:18)
[2021-08-15] MEDS: Ibuprofen 800 MG Tab PO PRN (04:19)
[2021-08-15] MEDS: Docusate Sodium 100 MG Cap PO SCH (08:42)
--- NOTE | 2021-08-15 11:41 | PCM.PNPP ---
- General Info Date of Service: 08/15/21 Functional Status: Reports: Pain Controlled, Tolerating Diet, Ambulating, Urinating - Review of Systems General: Denies: Fever, Weakness, Fatigue Pulmonary: Denies: Shortness of Breath Cardiovascular: Denies: Chest Pain, Palpitations Gastrointestinal: Denies: Abdominal Pain, Nausea, Vomiting Genitourinary: Denies: Flank Pain Musculoskeletal: Reports: No Symptoms Skin: Reports: No Symptoms Neurological: Reports: No Symptoms Psychiatric: Reports: No Symptoms - General Info Date of Service: 08/15/21 - Patient Data Vital Signs - Most Recent: Last Vital Signs Temp 36.2 C 08/15/21 07:00 Pulse 85 08/15/21 07:00 Resp 16 08/15/21 07:00 BP 134/95 H 08/15/21 07:00 Pulse Ox 98 08/15/21 07:00 Weight - Most Recent: 107.501 kg Med Orders - Current: Current Medications Bisacodyl (Bisacodyl 10 Mg Supp) 10 mg RECTAL ONETIME PRN PRN Reason: Constipation Butorphanol Tartrate (Butorphanol 1 Mg/Ml Sdv) 1 mg IVPUSH Q1H PRN PRN Reason: Pain (severe 7-10) Carboprost Tromethamine (Carboprost Tromethamine 250 Mcg/1 Ml Amp) 250 mcg IM ASDIRECTED PRN PRN Reason: Post Hemorrhage Diphenhydramine HCl (Diphenhydramine 50 Mg/Ml Sdv) 25 mg IVPUSH Q6H PRN PRN Reason: Itching or Nausea Docusate Sodium (Docusate Sodium 100 Mg Cap) 100 mg PO BID [facility] Last Admin: 08/15/21 08:42 Dose: 100 mg Documented by: Emollient Ointment (Lanolin 100% Cream 7 Gm Tube) 0 gm TOP ASDIRECTED PRN PRN Reason: Sore Nipples Last Admin: 08/14/21 01:52 Dose: 7 gm Documented by: Oxytocin/Sodium Chloride (Oxytocin 30 Unit/500 Ml-Ns) 30 unit in 500 mls @ 500 mls/hr IV TITRATE [facility] Tranexamic Acid 1,000 mg/ (Sodium Chloride) 110 mls @ 660 mls/hr IV ONETIME PRN PRN Reason: Bleeding Lactated Ringer's (Ringers, Lactated) 1,000 mls @ 150 mls/hr IV ASDIRECTED [facility] Last Admin: 08/12/21 16:18 Dose: 150 mls/hr Documented by: Oxytocin/Sodium Chloride (Oxytocin 30 Unit/500 Ml-Ns) 30 unit in 500 mls @ 2 mls/hr IV TITRATE [facility]; Protocol Lactated Ringer's (Ringers, Lactated) 1,000 mls @ 500 mls/hr IV BOLUS [facility] Oxytocin/Sodium Chloride (Oxytocin 30 Unit/500 Ml-Ns) 30 unit in 500 mls @ 250 mls/hr IV TITRATE [facility] Lactated Ringer's (Ringers, Lactated) 1,000 mls @ 125 mls/hr IV ASDIRECTED [facility] Oxytocin/Lactated Ringer's (Pitocin In Lr 30 Units/500 Ml) 30 unit in 500 mls @ 250 mls/hr IV TITRATE [facility]; Protocol Tranexamic Acid 1,000 mg/ (Sodium Chloride) 110 mls @ 660 mls/hr IV ONETIME PRN PRN Reason: Bleeding Ibuprofen (Ibuprofen 800 Mg Tab) 800 mg PO Q8H PRN PRN Reason: Cramping Last Admin: 08/15/21 04:19 Dose: 800 mg Documented by: Lidocaine HCl (Lidocaine 1% 50 Ml Mdv) 50 ml INJECT ONETIME PRN PRN Reason: Laceration repair Methylergonovine Maleate (Methylergonovine 0.2 Mg/1 Ml Amp) 0.2 mg IM ASDIRECTED PRN PRN Reason: Post Hemorrhage Methylergonovine Maleate (Methylergonovine 0.2 Mg/1 Ml Amp) 0.2 mg IM ONETIME PRN PRN Reason: Excessive Vaginal Bleeding Misoprostol (Misoprostol 200 Mcg Tab) 200 mcg PO ONETIME PRN PRN Reason: Post Hemorrhage Misoprostol (Misoprostol 25 Mcg (1/4 Of 100 Mcg) Tab) 25 mcg VAG ONETIME PRN PRN Reason: Cervical Ripening Misoprostol (Misoprostol 25 Mcg (1/4 Of 100 Mcg) Tab) 25 mcg VAG Q4H PRN PRN Reason: Cervical Ripening Last Admin: 08/12/21 10:05 Dose: 25 mcg Documented by: Misoprostol (Misoprostol 50 Mcg (1/2 Of 100 Mcg) Tab) 25 mcg VAG Q4H PRN PRN Reason: Other Misoprostol (Misoprostol 200 Mcg Tab) 1,000 mcg RECTAL ONETIME PRN PRN Reason: excessive bleeding Nalbuphine HCl (Nalbuphine 10 Mg/1 Ml Vial) 10 mg IVPUSH Q1H PRN PRN Reason: Pain (severe 7-10) Ondansetron HCl (Ondansetron 4 Mg/2 Ml Sdv) 4 mg IVPUSH Q4H PRN PRN Reason: Nausea/Vomiting Ondansetron HCl (Ondansetron 4 Mg/2 Ml Sdv) 4 mg IVPUSH Q4H PRN PRN Reason: Nausea/Vomiting Oxycodone/Acetaminophen (Acetaminophen/Oxycodone 325-5 Mg Tab) 1 tab PO Q4H PRN PRN Reason: Pain (severe 7-10) Last Admin: 08/15/21 04:18 Dose: 1 tab Documented by: Oxycodone/Acetaminophen (Acetaminophen/Oxycodone 325-5 Mg Tab) 2 tab PO Q4H PRN PRN Reason: Pain (severe 7-10) Oxytocin (Oxytocin 10 Units/1 Ml Sdv) 10 unit IM ASDIRECTED PRN PRN Reason: Excessive Vaginal Bleeding Sodium Chloride (Sodium Chloride 0.9% 10 Ml Syringe) 10 ml FLUSH ASDIRECTED PRN PRN Reason: Keep Vein Open Sodium Chloride (Sodium Chloride 0.9% 2.5 Ml Syringe) 2.5 ml FLUSH ASDIRECTED PRN PRN Reason: Keep Vein Open Sodium Chloride (Sodium Chloride 0.9% 10 Ml Sdv) 10 ml IV ASDIRECTED PRN PRN Reason: IV Use Sodium Chloride (Sodium Chloride 0.9% 10 Ml Syringe) 10 ml FLUSH ASDIRECTED PRN PRN Reason: Keep Vein Open Sodium Chloride (Sodium Chloride 0.9% 2.5 Ml Syringe) 2.5 ml FLUSH ASDIRECTED PRN PRN Reason: Keep Vein Open Sodium Chloride (Sodium Chloride 0.9% 10 Ml Sdv) 10 ml IV ASDIRECTED PRN PRN Reason: IV Use Sterile Water (Water For Irrigation,Sterile 1,000 Ml Container) 1,000 ml IRR ASDIRECTED PRN PRN Reason: delivery Terbutaline Sulfate (Terbutaline 1 Mg/Ml Sdv) 0.25 mg SUBCUT ASDIRECTED PRN PRN Reason: Tacysystole Discontinued Medications Bupivacaine HCl (Bupivacaine 0.5% 10 Ml Sdv) Confirm Administered Dose 10 ml .ROUTE .STK-MED ONE Stop: 08/12/21 16:18 Cefazolin Sodium (Cefazolin 1 Gm Vial) Confirm Administered Dose 2 gm .ROUTE .STK-MED ONE Stop: 08/12/21 17:07 Citric Acid/Sodium Citrate (Citric Acid/Sodium Citrate Solution 30 Ml Cup) 30 ml PO ONETIME ONE Stop: 08/12/21 16:16 Last Admin: 08/13/21 01:00 Dose: Not Given Documented by: Epinephrine HCl (Epinephrine 1 Mg/1 Ml Amp) Confirm Administered Dose 1 mg .ROUTE .STK-MED ONE Stop: 08/12/21 16:14 Fentanyl (Fentanyl 100 Mcg/2 Ml Sdv) Confirm Administered Dose 100 mcg .ROUTE .STK-MED ONE Stop: 08/12/21 16:21 Ropivacaine (Naropin 0.2%) Confirm Administered Dose 200 mls @ as directed .ROUTE .STK-MED ONE Stop: 08/12/21 13:24 Cefazolin Sodium/Dextrose 2 gm (/ Premix) 50 mls @ 100 mls/hr IV ONETIME ONE Stop: 08/12/21 16:44 Last Admin: 08/12/21 16:15 Dose: Not Given Documented by: Ketorolac Tromethamine (Ketorolac 30 Mg/Ml Sdv) Confirm Administered Dose 30 mg .ROUTE .STK-MED ONE Stop: 08/12/21 16:21 Ketorolac Tromethamine (Ketorolac 30 Mg/Ml Sdv) 30 mg IVPUSH Q6H [facility] Stop: 08/13/21 17:16 Last Admin: 08/13/21 17:03 Dose: 30 mg Documented by: Lidocaine (Lidocaine 2% 5 Ml Sdv) Confirm Administered Dose 20 ml .ROUTE .STK- MED ONE Stop: 08/12/21 16:14 Miscellaneous Medication (Phenylephrine Hcl In 0.9% Nacl 1 Mg/10 Ml Syringe) Confirm Administered Dose 1 mg .ROUTE .STK-MED ONE Stop: 08/12/21 16:21 Morphine Sulfate (Morphine Pf 10 Mg/10 Ml Sdv) Confirm Administered Dose 10 mg .ROUTE .STK-MED ONE Stop: 08/12/21 17:07 Ondansetron HCl (Ondansetron 4 Mg/2 Ml Sdv) Confirm Administered Dose 4 mg .ROUTE .STK-MED ONE Stop: 08/12/21 16:21 Oxytocin (Oxytocin 10 Units/1 Ml Sdv) Confirm Administered Dose 30 unit .ROUTE .STK-MED ONE Stop: 08/12/21 16:21 - Infant Interaction Infant Disposition, : [place] in Room with Family Infant Interaction: Holding Infant Feeding: Breastfed Infant; Nursed Well Support Person: - Recovery Exam Fundal Tone: Firm Fundal Level: 2 Fingerbreadths Below Umbilicus Fundal Placement: Midline Lochia Amount: Small Lochia Color: Rubra/Red Perineum Description: Intact, Minimal Bruising/Swelling Episiotomy/Laceration: None Bladder Status: Voiding Urinary Elimination: Voided - Exam General: Alert Lungs: Normal Respiratory Effort Cardiovascular: Regular Rate, Regular Rhythm GI/Abdominal Exam: Normal Bowel Sounds, Soft Extremities: Pedal Edema (trace). No: Lexy's Sign Skin: Warm, Dry, Intact Wound/Incisions: Healing Well. No: Drainage, Erythema Neurological: No New Focal Deficit - Problem List & Annotations (1) Status post primary low transverse section SNOMED Code(s): 057913330, [id number], [id number], 305442689, [id number] Code(s): Z98.891 - HISTORY OF UTERINE SCAR FROM PREVIOUS SURGERY Status: Acute Current Visit: Yes - Problem List Review Problem List Initiated/Reviewed/Updated: Yes - My Orders Last 24 Hours: My Active Orders 08/15/21 11:15 Ready for Discharge [RC] PER UNIT ROUTINE - Assessment Assessment:: 31 year old POD3 s/p primary lower transverse section with gestational hypertension - Plan Plan:: Routine postoperative/ cares * Rh positive, rubella immune, GBS negative * PO pain medications ordered * Regular diet as tolerated * Encourage ambulation and fluid intake today * , nursing assistance PRN Gestational hypertension * BP normotensive * Dispo: Doing well overall with blood pressures remaining in normal range. Allow discharge to home today. Discharge instructions reviewed. Follow up at [facility] and 6 weeks. Blood pressure warnings reviewed.
--- NOTE | 2021-08-16 09:45 | PCM.PREANE ---
Preanesthetic Assessment - Review of Systems General: No Symptoms Pulmonary: No Symptoms Cardiovascular: No Symptoms Gastrointestinal: No Symptoms Neurological: No Symptoms Other: Reports: None - Physical Assessment NPO Status Date: 08/12/21 NPO Status Time: 08:00 Vital Signs: Last Vital Signs Temp 97.1 F 08/15/21 07:00 Pulse 85 08/15/21 07:00 Resp 16 08/15/21 07:00 BP 134/95 H 08/15/21 07:00 Pulse Ox 98 08/15/21 07:00 Height: 5 ft 7 in Weight: 237 lb ASA Class: 2 Mental Status: Alert & Oriented x3 Airway Class: Mallampati = 2 Dentition: Reports: Normal Dentition ROM/Head Extension: Full Lungs: Clear to Auscultation, Normal Respiratory Effort Cardiovascular: Regular Rate, Regular Rhythm - Lab Values: Laboratory Last Values WBC 15.65 K/uL (4.0-11.0) H 08/11/21 17:45 RBC 4.88 M/uL (4.30-5.90) 08/11/21 17:45 Hgb 12.9 g/dL (12.0-16.0) 08/13/21 06:01 Hct 37.4 % (36.0-46.0) 08/13/21 06:01 MCV 83.0 fL (80.0-98.0) 08/11/21 17:45 MCH 29.3 pg (27.0-32.0) 08/11/21 17:45 MCHC 35.3 g/dL (31.0-37.0) 08/11/21 17:45 RDW Std Deviation 41.2 fl (28.0-62.0) 08/11/21 17:45 RDW Coeff of Rip 14 % (11.0-15.0) 08/11/21 17:45 Plt Count 292 K/uL (150-400) 08/11/21 17:45 MPV 10.70 fL (7.40-12.00) 08/11/21 17:45 Nucleated RBC % 0.0 /100WBC 08/11/21 17:45 Nucleated RBCs # 0 K/uL 08/11/21 17:45 Cord ABG pH 7.139 (7.18-7.38) L 08/12/21 16:36 Cord ABG Base Excess -9 (-10--2) 08/12/21 16:36 Cord VBG pH 7.124 (7.25-7.45) L 08/12/21 16:36 Cord VBG Base Excess -10 (-10--2) 08/12/21 16:36 Sodium 135 mmol/L (136-145) L 08/11/21 17:45 Potassium 4.0 mmol/L (3.5-5.1) 08/11/21 17:45 Chloride 101 mmol/L (98-107) 08/11/21 17:45 Carbon Dioxide 20.8 mmol/L (21.0-32.0) L 08/11/21 17:45 BUN 8 mg/dL (7.0-18.0) 08/11/21 17:45 Creatinine 0.8 mg/dL (0.6-1.0) 08/11/21 17:45 Est Cr Clr Drug Dosing 98.18 mL/min 08/11/21 17:45 Estimated GFR (MDRD) > 60.0 ml/min 08/11/21 17:45 Glucose 73 mg/dL (74-106) L 08/11/21 17:45 Calcium 9.6 mg/dL (8.5-10.1) 08/11/21 17:45 Total Bilirubin 0.3 mg/dL (0.2-1.0) 08/11/21 17:45 AST 21 IU/L (15-37) 08/11/21 17:45 ALT 27 IU/L (14-63) 08/11/21 17:45 Alkaline Phosphatase 159 U/L (46-116) H 08/11/21 17:45 Total Protein 6.6 g/dL (6.4-8.2) 08/11/21 17:45 Albumin 2.7 g/dL (3.4-5.0) L 08/11/21 17:45 Globulin 3.9 g/dL (2.6-4.0) 08/11/21 17:45 Albumin/Globulin Ratio 0.7 (0.9-1.6) L 08/11/21 17:45 RPR Non-Reac (Non-Reac) 08/11/21 17:45 SARS-CoV-2 RNA (GODFREY) NEGATIVE (NEGATIVE) 08/11/21 17:45 Blood Type O POSITIVE 08/11/21 17:45 Antibody Screen NEGATIVE 08/11/21 17:45 - Allergies Allergies/Adverse Reactions: Allergies Allergy/AdvReac Type Severity Reaction Status Date / Time No Known Allergies Allergy Verified 08/11/21 17:33 - Acknowledgements Anesthesia Type Planned: Epidural Pt an Appropriate Candidate for the Planned Anesthesia: Yes Alternatives and Risks of Anesthesia Discussed w Pt/Guardian: Yes Pt/Guardian Understands and Agrees with Anesthesia Plan: Yes PreAnesthesia Questionnaire MARRIAGE AND FAMILY THERAPIST History: Reports: - SUBSTANCE USE Tobacco Use Status *Q: Never Tobacco User Second Hand Smoke Exposure: No Recreational Drug Use History: No - HOME MEDS Home Medications: Home Meds Acetaminophen/oxyCODONE [Percocet 325-5 MG] 1 tab PO Q4H PRN #20 tablet 08/13/21 [Rx] Ibuprofen [Motrin] 800 mg PO Q8H PRN #30 tablet 08/13/21 [Rx] - CURRENT (IN HOUSE) MEDS Current Meds: Current Medications Discontinued Medications Bisacodyl (Bisacodyl 10 Mg Supp) 10 mg RECTAL ONETIME PRN PRN Reason: Constipation Bupivacaine HCl (Bupivacaine 0.5% 10 Ml Sdv) Confirm Administered Dose 10 ml .ROUTE .[facility] ONE Stop: 08/12/21 16:18 Butorphanol Tartrate (Butorphanol 1 Mg/Ml Sdv) 1 mg IVPUSH Q1H PRN PRN Reason: Pain (severe 7-10) Carboprost Tromethamine (Carboprost Tromethamine 250 Mcg/1 Ml Amp) 250 mcg IM ASDIRECTED PRN PRN Reason: Post Hemorrhage Cefazolin Sodium (Cefazolin 1 Gm Vial) Confirm Administered Dose 2 gm .ROUTE .[facility] ONE Stop: 08/12/21 17:07 Citric Acid/Sodium Citrate (Citric Acid/Sodium Citrate Solution 30 Ml Cup) 30 ml PO ONETIME ONE Stop: 08/12/21 16:16 Last Admin: 08/13/21 01:00 Dose: Not Given Documented by: Diphenhydramine HCl (Diphenhydramine 50 Mg/Ml Sdv) 25 mg IVPUSH Q6H PRN PRN Reason: Itching or Nausea Docusate Sodium (Docusate Sodium 100 Mg Cap) 100 mg PO BID ROSETTE Last Admin: 08/15/21 08:42 Dose: 100 mg Documented by: Emollient Ointment (Lanolin 100% Cream 7 Gm Tube) 0 gm TOP ASDIRECTED PRN PRN Reason: Sore Nipples Last Admin: 08/14/21 01:52 Dose: 7 gm Documented by: Epinephrine HCl (Epinephrine 1 Mg/1 Ml Amp) Confirm Administered Dose 1 mg .ROUTE .[facility] ONE Stop: 08/12/21 16:14 Fentanyl (Fentanyl 100 Mcg/2 Ml Sdv) Confirm Administered Dose 100 mcg .ROUTE .[facility] ONE Stop: 08/12/21 16:21 Oxytocin/Sodium Chloride (Oxytocin 30 Unit/500 Ml-Ns) 30 unit in 500 mls @ 500 mls/hr IV TITRATE [facility] Tranexamic Acid 1,000 mg/ (Sodium Chloride) 110 mls @ 660 mls/hr IV ONETIME PRN PRN Reason: Bleeding Lactated Ringer's (Ringers, Lactated) 1,000 mls @ 150 mls/hr IV ASDIRECTED [facility] Last Admin: 08/12/21 16:18 Dose: 150 mls/hr Documented by: Oxytocin/Sodium Chloride (Oxytocin 30 Unit/500 Ml-Ns) 30 unit in 500 mls @ 2 mls/hr IV TITRATE [facility]; Protocol Ropivacaine (Naropin 0.2%) Confirm Administered Dose 200 mls @ as directed .ROUTE .[facility] ONE Stop: 08/12/21 13:24 Lactated Ringer's (Ringers, Lactated) 1,000 mls @ 500 mls/hr IV BOLUS ROSETTE Oxytocin/Sodium Chloride (Oxytocin 30 Unit/500 Ml-Ns) 30 unit in 500 mls @ 250 mls/hr IV TITRATE [facility] Cefazolin Sodium/Dextrose 2 gm (/ Premix) 50 mls @ 100 mls/hr IV ONETIME ONE Stop: 08/12/21 16:44 Last Admin: 08/12/21 16:15 Dose: Not Given Documented by: Lactated Ringer's (Ringers, Lactated) 1,000 mls @ 125 mls/hr IV ASDIRECTED [facility] Oxytocin/Lactated Ringer's (Pitocin In Lr 30 Units/500 Ml) 30 unit in 500 mls @ 250 mls/hr IV TITRATE ROSETTE; Protocol Tranexamic Acid 1,000 mg/ (Sodium Chloride) 110 mls @ 660 mls/hr IV ONETIME PRN PRN Reason: Bleeding Ibuprofen (Ibuprofen 800 Mg Tab) 800 mg PO Q8H PRN PRN Reason: Cramping Last Admin: 08/15/21 04:19 Dose: 800 mg Documented by: Ketorolac Tromethamine (Ketorolac 30 Mg/Ml Sdv) Confirm Administered Dose 30 mg .ROUTE .[facility] ONE Stop: 08/12/21 16:21 Ketorolac Tromethamine (Ketorolac 30 Mg/Ml Sdv) 30 mg IVPUSH Q6H ROSETTE Stop: 08/13/21 17:16 Last Admin: 08/13/21 17:03 Dose: 30 mg Documented by: Lidocaine (Lidocaine 2% 5 Ml Sdv) Confirm Administered Dose 20 ml .ROUTE .[employer] ONE Stop: 08/12/21 16:14 Lidocaine HCl (Lidocaine 1% 50 Ml Mdv) 50 ml INJECT ONETIME PRN PRN Reason: Laceration repair Methylergonovine Maleate (Methylergonovine 0.2 Mg/1 Ml Amp) 0.2 mg IM ASDIRECTED PRN PRN Reason: Post Hemorrhage Methylergonovine Maleate (Methylergonovine 0.2 Mg/1 Ml Amp) 0.2 mg IM ONETIME PRN PRN Reason: Excessive Vaginal Bleeding Miscellaneous Medication (Phenylephrine Hcl In 0.9% Nacl 1 Mg/10 Ml Syringe) Confirm Administered Dose 1 mg .ROUTE .[facility] ONE Stop: 08/12/21 16:21 Misoprostol (Misoprostol 200 Mcg Tab) 200 mcg PO ONETIME PRN PRN Reason: Post Hemorrhage Misoprostol (Misoprostol 25 Mcg (1/4 Of 100 Mcg) Tab) 25 mcg VAG ONETIME PRN PRN Reason: Cervical Ripening Misoprostol (Misoprostol 25 Mcg (1/4 Of 100 Mcg) Tab) 25 mcg VAG Q4H PRN PRN Reason: Cervical Ripening Last Admin: 08/12/21 10:05 Dose: 25 mcg Documented by: Misoprostol (Misoprostol 50 Mcg (1/2 Of 100 Mcg) Tab) 25 mcg VAG Q4H PRN PRN Reason: Other Misoprostol (Misoprostol 200 Mcg Tab) 1,000 mcg RECTAL ONETIME PRN PRN Reason: excessive bleeding Morphine Sulfate (Morphine Pf 10 Mg/10 Ml Sdv) Confirm Administered Dose 10 mg .ROUTE .[employer] ONE Stop: 08/12/21 17:07 Nalbuphine HCl (Nalbuphine 10 Mg/1 Ml Vial) 10 mg IVPUSH Q1H PRN PRN Reason: Pain (severe 7-10) Ondansetron HCl (Ondansetron 4 Mg/2 Ml Sdv) 4 mg IVPUSH Q4H PRN PRN Reason: Nausea/Vomiting Ondansetron HCl (Ondansetron 4 Mg/2 Ml Sdv) Confirm Administered Dose 4 mg .ROUTE .[employer] ONE Stop: 08/12/21 16:21 Ondansetron HCl (Ondansetron 4 Mg/2 Ml Sdv) 4 mg IVPUSH Q4H PRN PRN Reason: Nausea/Vomiting Oxycodone/Acetaminophen (Acetaminophen/Oxycodone 325-5 Mg Tab) 1 tab PO Q4H PRN PRN Reason: Pain (severe 7-10) Last Admin: 08/15/21 04:18 Dose: 1 tab Documented by: Oxycodone/Acetaminophen (Acetaminophen/Oxycodone 325-5 Mg Tab) 2 tab PO Q4H PRN PRN Reason: Pain (severe 7-10) Oxytocin (Oxytocin 10 Units/1 Ml Sdv) Confirm Administered Dose 30 unit .ROUTE .[employer] ONE Stop: 08/12/21 16:21 Oxytocin (Oxytocin 10 Units/1 Ml Sdv) 10 unit IM ASDIRECTED PRN PRN Reason: Excessive Vaginal Bleeding Sodium Chloride (Sodium Chloride 0.9% 10 Ml Syringe) 10 ml FLUSH ASDIRECTED PRN PRN Reason: Keep Vein Open Sodium Chloride (Sodium Chloride 0.9% 2.5 Ml Syringe) 2.5 ml FLUSH ASDIRECTED PRN PRN Reason: Keep Vein Open Sodium Chloride (Sodium Chloride 0.9% 10 Ml Sdv) 10 ml IV ASDIRECTED PRN PRN Reason: IV Use Sodium Chloride (Sodium Chloride 0.9% 10 Ml Syringe) 10 ml FLUSH ASDIRECTED PRN PRN Reason: Keep Vein Open Sodium Chloride (Sodium Chloride 0.9% 2.5 Ml Syringe) 2.5 ml FLUSH ASDIRECTED PRN PRN Reason: Keep Vein Open Sodium Chloride (Sodium Chloride 0.9% 10 Ml Sdv) 10 ml IV ASDIRECTED PRN PRN Reason: IV Use Sterile Water (Water For Irrigation,Sterile 1,000 Ml Container) 1,000 ml IRR ASDIRECTED PRN PRN Reason: delivery Terbutaline Sulfate (Terbutaline 1 Mg/Ml Sdv) 0.25 mg SUBCUT ASDIRECTED PRN PRN Reason: Tacysystole
--- NOTE | 2021-08-16 09:49 | PCM.SN.2 ---
Time Documentation - Pre-Procedure Checklist Attending Provider Aware: Yes Chart Reviewed: Yes Consent Signed: Yes Labs Reviewed: Yes VS/FHR Reviewed: Yes Patient Identification Confirmation Method: Reports: Chart Barcode, Chart Visual, ID Band Visual, Verbal Patient Pt an Appropriate Candidate for the Planned Anesthesia: Yes Alternatives and Risks of Anesthesia Discussed w Pt/Guardian: Yes - Procedure Procedure Start Date: 08/12/21 Procedure Start Time: 13:[address]: Reports: Blood Pressure, Heart Rate, SPO2 Functional IV: Yes Safety Measures: Reports: Patient Identified, Procedure Verified, Site Verified, Procedure Time Out Patient Position: Reports: Sitting Prep: Reports: Alcohol x3, Betadine x3 Local Anesthetic: Reports: Intradermal Wheal w Lidocaine 1% Regional Placement Level: Reports: L3-4 Needle: Reports: 17 g Touhy Approach: Reports: Midline Technique: Reports: HERMELINDA Plastic Syringe Parasthesia: Reports: None Fluid Obtained: Reports: None Test Dose Medication: Reports: Lidocaine 1.5% w Epinephrine 1:200,000 Test Dose Response: Reports: Negative Loading Dose Time: 13:35 Continuous Infusion Start Time: 13:40 Continuous Infusion Medication: 0.2% Naropin Continuous Infusion Rate: 18cc/hr Continuous Infusion PCS Bolus Option: 4cc Continuous Infusion Lockout Dose (cc/hr): 30 Patient Position Post Placement: Reports: Supline/DEBRA Post-procedure Pain Level: 2 VS and FHR Monitored in Unit Post Placement: Yes Procedure End Date: 08/12/21 Procedure End Time: 14:23
--- NOTE | 2021-08-16 09:50 | PCM.POSTAN ---
POST ANESTHESIA ASSESSMENT - MENTAL STATUS Mental Status: Alert, Oriented - VITAL SIGNS Vital Signs: Last Vital Signs Temp 97.1 F 08/15/21 07:00 Pulse 85 08/15/21 07:00 Resp 16 08/15/21 07:00 BP 134/95 H 08/15/21 07:00 Pulse Ox 98 08/15/21 07:00 - RESPIRATORY Respiratory Status: Respiratory Rate WNL, Airway Patent, O2 Saturation Stable - CARDIOVASCULAR CV Status: Pulse Rate WNL, Blood Pressure Stable - GASTROINTESTINAL GI Status: No Symptoms - POST OP HYDRATION Hydration Status: Adequate & Stable
--- NOTE | 2021-08-16 09:50 | PCM48HPAN ---
Post Anesthesia Note - EVALUATION WITHIN 48HRS OF ANESTHETIC Vital Signs in Normal Range: Yes Patient Participated in Evaluation: Yes Respiratory Function Stable: Yes Airway Patent: Yes Cardiovascular Function Stable: Yes Hydration Status Stable: Yes Pain Control Satisfactory: Yes Nausea and Vomiting Control Satisfactory: Yes Mental Status Recovered: Yes Vital Signs: Last Vital Signs Temp 97.1 F 08/15/21 07:00 Pulse 85 08/15/21 07:00 Resp 16 08/15/21 07:00 BP 134/95 H 08/15/21 07:00 Pulse Ox 98 08/15/21 07:00
== END 2021-08-15 11:59 | disposition home or self-care (01) | DRG 540 ==
LOC: MW.OB 17:00 → OBSVTOIN 17:15 → INTOOBSV 17:15 → MW.OB 17:15 → UNDOADMOB 17:20 → MW.OB 17:20 → OBSVTOIN 08-12 17:15 → MW.OB 08-12 19:42
PROVIDERS: ADMIT Obstetrics & Gynecology; ATTEND Obstetrics & Gynecology
PROC: 10D00Z1 Extraction of Products of Conception, Low, Open Approach (ICD-10-PCS; principal; 2021-08-12)
PROC: 3E0P7VZ Introduction of Hormone into Female Reproductive, Via Natural or Artificial Opening (ICD-10-PCS; 2021-08-12)
PROC: 3E0R3BZ Introduction of Anesthetic Agent into Spinal Canal, Percutaneous Approach (ICD-10-PCS; 2021-08-12)
DX: O13.4 Gestational [pregnancy-induced] hypertension without significant proteinuria, complicating childbirth (principal); Z3A.37 37 weeks gestation of pregnancy; Z37.0 Single live birth; O99.214 Obesity complicating childbirth; O76 Abnormality in fetal heart rate and rhythm complicating labor and delivery; Z20.822 Contact with and (suspected) exposure to COVID-19
CPT/HCPCS: 01967; 36415; 51702; 59025; 80053; 82803; 85014; 85018; 85027; 86592; 86850; 86900; 86901; A9270-GY; J0171; J0690; J1885; J2270; J2370; J2405; J2590; J2795; J3010; J3490; J7120; U0002